=== PATIENT | female | born 1960 | race Caucasian/White ===

== ENCOUNTER 2018-12-13 21:23 | Day surgery (SDC) | payer OTHER ==
[2018-12-13] MEDS ORDERED: Sodium Chloride 0.9% 1,000 ML IV ONE (21:28)
[2018-12-13] MEDS ORDERED: Ketorolac 30 MG/ML SDV IVPUSH ONE (21:28)
[2018-12-13] MEDS ORDERED: Ondansetron 4 MG/2 ML SDV IVPUSH ONE (21:28)
--- NOTE | 2018-12-13 21:52 | EDM.PDOC ---
ED HPI GENERAL MEDICAL PROBLEM - General Stated Complaint: SPOKE TO NURSE Time Seen by Provider: 12/13/18 21:24 - History of Present Illness INITIAL COMMENTS - FREE TEXT/NARRATIVE: HISTORY AND PHYSICAL: History of present illness: Patient 58-year-old white female presents with a acute right-sided abdominal pain she denies trauma states she did lift up her grandchild and felt like something might have pulled she denies fever chills been no vomiting or diarrhea no urinary symptoms. She denies prior abdominal surgery Review of systems: As per history of present illness and below otherwise all systems reviewed and negative. Past medical history: As per history of present illness and as reviewed below otherwise noncontributory. Surgical history: As per history of present illness and as reviewed below otherwise noncontributory. Social history: No reported history of drug or alcohol abuse. Family history: As per history of present illness and as reviewed below otherwise noncontributory. Physical exam: HEENT: Atraumatic, normocephalic, pupils reactive, negative for conjunctival pallor or scleral icterus, mucous membranes moist, throat clear, neck supple, nontender, trachea midline. Lungs: Clear to auscultation, breath sounds equal bilaterally, chest nontender. Heart: S1S2, regular, negative for clicks, rubs, or JVD. Abdomen: Soft, nondistended, tenderness in the right lower quadrant to deep palpation. Negative for masses or hepatosplenomegaly. Negative for costovertebral tenderness. Pelvis: Stable nontender. Genitourinary: Deferred. Rectal: Deferred. Extremities: Atraumatic, negative for cords or calf pain. Neurovascular unremarkable. Neuro: Awake, alert, oriented. Cranial nerves II through XII unremarkable. Cerebellum unremarkable. Motor and sensory unremarkable throughout. Exam nonfocal. Diagnostics: CBC CMP lipase UA chest x-ray CT abdomen and pelvis Therapeutics: Saline 1 L bolus Toradol 30 mg IV Zofran 4 mg IV Impression: #1 right-sided abdominal pain Definitive disposition and diagnosis as appropriate pending reevaluation and review of above. - Related Data Allergies Allergy/AdvReac Type Severity Reaction Status Date / Time No Known Allergies Allergy Verified 12/13/18 21:29 Home Meds: Home Meds . [No Known Home Meds] 12/13/18 [History] ED ROS GENERAL - Review of Systems Review Of Systems: ROS reveals no pertinent complaints other than HPI. ED EXAM, GENERAL - Physical Exam Exam: See Below (Dictation) Course - Vital Signs Last Recorded V/S: Last Vital Signs Temp 35.7 C 12/13/18 21:29 Pulse 81 12/13/18 21:29 Resp 18 12/13/18 21:29 BP 149/71 H 12/13/18 21:29 Pulse Ox 97 12/13/18 21:29 - Orders/Labs/Meds Labs: Laboratory Tests 12/13/18 12/13/18 12/13/18 Range/Units 21:40 21:40 21:40 WBC 15.60 H (4.0-11.0) K/uL RBC 4.97 (4.30-5.90) M/uL Hgb 15.4 (12.0-16.0) g/dL Hct 46.9 H (36.0-46.0) % MCV 94.4 (80.0-98.0) fL MCH 31.0 (27.0-32.0) pg MCHC 32.8 (31.0-37.0) g/dL RDW Std Deviation 46.6 (28.0-62.0) fl RDW Coeff of Cheri 14 (11.0-15.0) % Plt Count 221 (150-400) K/uL MPV 10.60 (7.40-12.00) fL Neut % (Auto) 79.5 (48.0-80.0) % Lymph % (Auto) 13.1 L (16.0-40.0) % [place] % (Auto) 6.4 (0.0-15.0) % Eos % (Auto) 0.8 (0.0-7.0) % Baso % (Auto) 0.2 (0.0-1.5) % Neut # (Auto) 12.4 H (1.4-5.7) K/uL Lymph # (Auto) 2.1 (0.6-2.4) K/uL [place] # (Auto) 1.0 H (0.0-0.8) K/uL Eos # (Auto) 0.1 (0.0-0.7) K/uL Baso # (Auto) 0.0 (0.0-0.1) K/uL Nucleated RBC % 0.0 /100WBC Nucleated RBCs # 0 K/uL INR 0.96 Sodium 141 (136-145) mmol/L Potassium 3.7 (3.5-5.1) mmol/L Chloride 104 (98-107) mmol/L Carbon Dioxide 26.4 (21.0-32.0) mmol/L BUN 18 (7.0-18.0) mg/dL Creatinine 0.9 (0.6-1.0) mg/dL Est Cr Clr Drug Dosing 67.87 mL/min Estimated GFR (MDRD) > 60.0 ml/min Glucose 139 H (74-106) mg/dL Calcium 9.0 (8.5-10.1) mg/dL Total Bilirubin 0.4 (0.2-1.0) mg/dL AST 26 (15-37) IU/L ALT 29 (14-63) IU/L Alkaline Phosphatase 55 (46-116) U/L Total Protein 7.6 (6.4-8.2) g/dL Albumin 3.8 (3.4-5.0) g/dL Globulin 3.8 (2.6-4.0) g/dL Albumin/Globulin Ratio 1.0 (0.9-1.6) Lipase 116 (73-393) U/L Urine Color Urine Appearance Urine pH (5.0-8.0) Ur Specific [place] (1.001-1.035) Urine Protein (NEGATIVE) mg/dL Urine Glucose (UA) (NEGATIVE) mg/dL Urine Ketones (NEGATIVE) mg/dL Urine Occult Blood (NEGATIVE) Urine Nitrite (NEGATIVE) Urine Bilirubin (NEGATIVE) Urine Urobilinogen (<2.0) EU/dL Ur Leukocyte Esterase (NEGATIVE) Urine RBC (0-2/HPF) Urine WBC (0-5/HPF) Ur Epithelial Cells (NONE-FEW) Urine Bacteria (NEGATIVE) 12/13/18 Range/Units 21:45 WBC (4.0-11.0) K/uL RBC (4.30-5.90) M/uL Hgb (12.0-16.0) g/dL Hct (36.0-46.0) % MCV (80.0-98.0) fL MCH (27.0-32.0) pg MCHC (31.0-37.0) g/dL RDW Std Deviation (28.0-62.0) fl RDW Coeff of Cheri (11.0-15.0) % Plt Count (150-400) K/uL MPV (7.40-12.00) fL Neut % (Auto) (48.0-80.0) % Lymph % (Auto) (16.0-40.0) % [place] % (Auto) (0.0-15.0) % Eos % (Auto) (0.0-7.0) % Baso % (Auto) (0.0-1.5) % Neut # (Auto) (1.4-5.7) K/uL Lymph # (Auto) (0.6-2.4) K/uL [place] # (Auto) (0.0-0.8) K/uL Eos # (Auto) (0.0-0.7) K/uL Baso # (Auto) (0.0-0.1) K/uL Nucleated RBC % /100WBC Nucleated RBCs # K/uL INR Sodium (136-145) mmol/L Potassium (3.5-5.1) mmol/L Chloride (98-107) mmol/L Carbon Dioxide (21.0-32.0) mmol/L BUN (7.0-18.0) mg/dL Creatinine (0.6-1.0) mg/dL Est Cr Clr Drug Dosing mL/min Estimated GFR (MDRD) ml/min Glucose (74-106) mg/dL Calcium (8.5-10.1) mg/dL Total Bilirubin (0.2-1.0) mg/dL AST (15-37) IU/L ALT (14-63) IU/L Alkaline Phosphatase (46-116) U/L Total Protein (6.4-8.2) g/dL Albumin (3.4-5.0) g/dL Globulin (2.6-4.0) g/dL Albumin/Globulin Ratio (0.9-1.6) Lipase (73-393) U/L Urine Color YELLOW Urine Appearance CLEAR Urine pH 6.5 (5.0-8.0) Ur Specific [place] 1.020 (1.001-1.035) Urine Protein NEGATIVE (NEGATIVE) mg/dL Urine Glucose (UA) NEGATIVE (NEGATIVE) mg/dL Urine Ketones TRACE H (NEGATIVE) mg/dL Urine Occult Blood TRACE-LYSED H (NEGATIVE) Urine Nitrite NEGATIVE (NEGATIVE) Urine Bilirubin NEGATIVE (NEGATIVE) Urine Urobilinogen 0.2 (<2.0) EU/dL Ur Leukocyte Esterase NEGATIVE (NEGATIVE) Urine RBC 0-2 (0-2/HPF) Urine WBC 0-1 (0-5/HPF) Ur Epithelial Cells RARE (NONE-FEW) Urine Bacteria RARE (NEGATIVE) Meds: Medications Discontinued Medications Generic Name Dose Route Start Last Admin Trade Name Freq PRN Reason Stop Dose Admin Sodium Chloride 1,000 mls @ 999 mls/hr 12/13/18 21:28 12/13/18 21:43 Normal Saline IV 12/13/18 22:28 999 mls/hr STAT ONE Administration Ketorolac Tromethamine 30 mg 12/13/18 21:28 12/13/18 21:44 Toradol IVPUSH 12/13/18 21:29 30 mg ONETIME ONE Administration Ondansetron HCl 4 mg 12/13/18 21:28 12/13/18 21:43 Zofran IVPUSH 12/13/18 21:29 4 mg ONETIME ONE Administration Departure - Departure Time of Disposition: 23:00 Disposition: Still A Patient 30 Condition: Good Clinical Impression: Appendicitis - Discharge Information
[2018-12-13 22:16] LABS: BLOOD UREA NITROGEN,BUN 18 mg/dL (7.0-18.0); CARBON DIOXIDE,CO2 26.4 mmol/L (21.0-32.0); CHLORIDE,CL 104 mmol/L (98-107); GLUCOSE RANDOM 139 mg/dL (74-106); LIPASE 116 U/L (73-393); POTASSIUM,K 3.7 mmol/L (3.5-5.1); SODIUM,NA 141 mmol/L (136-145)
--- NOTE | 2018-12-13 22:22 | CT ---
INDICATION: Right lower quadrant pain TECHNIQUE: CT abdomen and pelvis without contrast. COMPARISON: None FINDINGS: Lower chest: Unremarkable. Liver: Hepatic steatosis. Spleen: Unremarkable. Pancreas: Unremarkable. Gallbladder and bile ducts: Unremarkable. Kidneys: Unremarkable. No kidney or ureteral stones and no hydronephrosis. Adrenal glands: Unremarkable. GI tract: Unremarkable. Dilated and thickened appendix with adjacent periappendiceal fat stranding. Findings consistent with acute appendicitis. Vascular structures: Unremarkable. Lymph nodes: Unremarkable. Miscellaneous: Small fat containing umbilical hernia. No free air or significant free fluid. Pelvic Organs: Unremarkable. Bones: Unremarkable for age. IMPRESSION: Dilated and thickened appendix with adjacent periappendiceal fat stranding. Findings consistent with acute appendicitis. Hepatic steatosis. Dictated by Carlos Dorsey MD @ 12/13/2018 10:21:36 PM Please note that all CT scans at this facility use dose modulation, iterative reconstruction, and/or weight-based dosing when appropriate to reduce radiation dose to as low as reasonably achievable. Dictated by: Carlos Dorsey MD @ 12/13/2018 22:21:44 (Electronically Signed)
--- NOTE | 2018-12-13 22:48 | CR ---
INDICATION: abd pain. r/o pneumonia. hx of walking pneumonia TECHNIQUE: Chest 1 view. COMPARISON: None. FINDINGS: Cardiovascular and mediastinum: Heart size and vasculature are normal in caliber and appearance. Mediastinum is within normal limits. Lungs and pleural space: Lungs are clear. No sign of infiltrate or mass. No sign of pleural effusion. No pneumothorax. Bones and soft tissues: No significant findings. IMPRESSION: Unremarkable chest. Dictated by: Carlos Dorsey MD @ 12/13/2018 22:48:27 (Electronically Signed)
[2018-12-13] MEDS ORDERED: cefOXitin 2 GM in Sodium Chloride 0.9% 100 ML IV ONE (23:22)
--- NOTE | 2018-12-13 23:23 | PCM.PREANE ---
Preanesthetic Assessment - Anesthesia/Transfusion/Family Hx Anesthesia History: No Prior Anesthesia Family History of Anesthesia Reaction: No Transfusion History: No Prior Transfusion(s) - Review of Systems General: No Symptoms Pulmonary: No Symptoms Cardiovascular: No Symptoms Gastrointestinal: No Symptoms Neurological: No Symptoms Other: Reports: None - Physical Assessment NPO Status Date: 12/13/18 NPO Status Time: 17:00 Vital Signs: Last Vital Signs Temp 96.2 F 12/13/18 21:29 Pulse 81 12/13/18 21:29 Resp 18 12/13/18 21:29 BP 149/71 H 12/13/18 21:29 Pulse Ox 97 12/13/18 21:29 Height: 5 ft 7 in Weight: 82.1 kg ASA Class: 2E Mental Status: Alert & Oriented x3 Airway Class: Mallampati = 2 Dentition: Reports: Normal Dentition Thyro-Mental Finger Breadths: 3 Mouth Opening Finger Breadths: 3 ROM/Head Extension: Full Lungs: Clear to Auscultation, Normal Respiratory Effort Cardiovascular: Regular Rate, Regular Rhythm - Lab Values: Laboratory Last Values WBC 15.60 K/uL (4.0-11.0) H 12/13/18 21:40 RBC 4.97 M/uL (4.30-5.90) 12/13/18 21:40 Hgb 15.4 g/dL (12.0-16.0) 12/13/18 21:40 Hct 46.9 % (36.0-46.0) H 12/13/18 21:40 MCV 94.4 fL (80.0-98.0) 12/13/18 21:40 MCH 31.0 pg (27.0-32.0) 12/13/18 21:40 MCHC 32.8 g/dL (31.0-37.0) 12/13/18 21:40 RDW Std Deviation 46.6 fl (28.0-62.0) 12/13/18 21:40 RDW Coeff of Cheri 14 % (11.0-15.0) 12/13/18 21:40 Plt Count 221 K/uL (150-400) 12/13/18 21:40 MPV 10.60 fL (7.40-12.00) 12/13/18 21:40 Neut % (Auto) 79.5 % (48.0-80.0) 12/13/18 21:40 Lymph % (Auto) 13.1 % (16.0-40.0) L 12/13/18 21:40 [place] % (Auto) 6.4 % (0.0-15.0) 12/13/18 21:40 Eos % (Auto) 0.8 % (0.0-7.0) 12/13/18 21:40 Baso % (Auto) 0.2 % (0.0-1.5) 12/13/18 21:40 Neut # (Auto) 12.4 K/uL (1.4-5.7) H 12/13/18 21:40 Lymph # (Auto) 2.1 K/uL (0.6-2.4) 12/13/18 21:40 [place] # (Auto) 1.0 K/uL (0.0-0.8) H 12/13/18 21:40 Eos # (Auto) 0.1 K/uL (0.0-0.7) 12/13/18 21:40 Baso # (Auto) 0.0 K/uL (0.0-0.1) 12/13/18 21:40 Nucleated RBC % 0.0 /100WBC 12/13/18 21:40 Nucleated RBCs # 0 K/uL 12/13/18 21:40 INR 0.96 12/13/18 21:40 Sodium 141 mmol/L (136-145) 12/13/18 21:40 Potassium 3.7 mmol/L (3.5-5.1) 12/13/18 21:40 Chloride 104 mmol/L (98-107) 12/13/18 21:40 Carbon Dioxide 26.4 mmol/L (21.0-32.0) 12/13/18 21:40 BUN 18 mg/dL (7.0-18.0) 12/13/18 21:40 Creatinine 0.9 mg/dL (0.6-1.0) 12/13/18 21:40 Est Cr Clr Drug Dosing 67.87 mL/min 12/13/18 21:40 Estimated GFR (MDRD) > 60.0 ml/min 12/13/18 21:40 Glucose 139 mg/dL (74-106) H 12/13/18 21:40 Calcium 9.0 mg/dL (8.5-10.1) 12/13/18 21:40 Total Bilirubin 0.4 mg/dL (0.2-1.0) 12/13/18 21:40 AST 26 IU/L (15-37) 12/13/18 21:40 ALT 29 IU/L (14-63) 12/13/18 21:40 Alkaline Phosphatase 55 U/L (46-116) 12/13/18 21:40 Total Protein 7.6 g/dL (6.4-8.2) 12/13/18 21:40 Albumin 3.8 g/dL (3.4-5.0) 12/13/18 21:40 Globulin 3.8 g/dL (2.6-4.0) 12/13/18 21:40 Albumin/Globulin Ratio 1.0 (0.9-1.6) 12/13/18 21:40 Lipase 116 U/L (73-393) 12/13/18 21:40 Urine Color YELLOW 12/13/18 21:45 Urine Appearance CLEAR 12/13/18 21:45 Urine pH 6.5 (5.0-8.0) 12/13/18 21:45 Ur Specific [place] 1.020 (1.001-1.035) 12/13/18 21:45 Urine Protein NEGATIVE mg/dL (NEGATIVE) 12/13/18 21:45 Urine Glucose (UA) NEGATIVE mg/dL (NEGATIVE) 12/13/18 21:45 Urine Ketones TRACE mg/dL (NEGATIVE) H 12/13/18 21:45 Urine Occult Blood TRACE-LYSED (NEGATIVE) H 12/13/18 21:45 Urine Nitrite NEGATIVE (NEGATIVE) 12/13/18 21:45 Urine Bilirubin NEGATIVE (NEGATIVE) 12/13/18 21:45 Urine Urobilinogen 0.2 EU/dL (<2.0) 12/13/18 21:45 Ur Leukocyte Esterase NEGATIVE (NEGATIVE) 12/13/18 21:45 Urine RBC 0-2 (0-2/HPF) 12/13/18 21:45 Urine WBC 0-1 (0-5/HPF) 12/13/18 21:45 Ur Epithelial Cells RARE (NONE-FEW) 12/13/18 21:45 Urine Bacteria RARE (NEGATIVE) 12/13/18 21:45 - Allergies Allergies/Adverse Reactions: Allergies Allergy/AdvReac Type Severity Reaction Status Date / Time No Known Allergies Allergy Verified 12/13/18 21:29 - Acknowledgements Anesthesia Type Planned: General Anesthesia Pt an Appropriate Candidate for the Planned Anesthesia: Yes Alternatives and Risks of Anesthesia Discussed w Pt/Guardian: Yes Pt/Guardian Understands and Agrees with Anesthesia Plan: Yes PreAnesthesia Questionnaire - Past Health History Medical/Surgical History: Denies Medical/Surgical History HEENT History: Reports: None Cardiovascular History: Reports: None Respiratory History: Reports: None Gastrointestinal History: Reports: Other (See Below) (Appendicitis) Genitourinary History: Reports: None MARKET DEVELOPMENT SPECIALIST History: Reports: None Musculoskeletal History: Reports: None Neurological History: Reports: None Psychiatric History: Reports: None Endocrine/Metabolic History: Reports: None Hematologic History: Reports: None Immunologic History: Reports: None Oncologic (Cancer) History: Reports: None Dermatologic History: Reports: None - Infectious Disease History Infectious Disease History: Reports: Chicken Pox - Past Surgical History Musculoskeletal Surgical History: Reports: Other (See Below) (Rt wrist surgery) - SUBSTANCE USE Smoking Status *Q: Current Every Day Smoker Tobacco Use Within Last Twelve Months: Cigarettes Recreational Drug Use History: No - HOME MEDS Home Medications: Home Meds . [No Known Home Meds] 12/13/18 [History] - CURRENT (IN HOUSE) MEDS Current Meds: Current Medications Discontinued Medications Sodium Chloride (Normal Saline) 1,000 mls @ 999 mls/hr IV STAT ONE Stop: 12/13/18 22:28 Last Admin: 12/13/18 21:43 Dose: 999 mls/hr Ketorolac Tromethamine (Toradol) 30 mg IVPUSH ONETIME ONE Stop: 12/13/18 21:29 Last Admin: 12/13/18 21:44 Dose: 30 mg Ondansetron HCl (Zofran) 4 mg IVPUSH ONETIME ONE Stop: 12/13/18 21:29 Last Admin: 12/13/18 21:43 Dose: 4 mg
[2018-12-13] MEDS ORDERED: Lidocaine 2% 5 ML SDV ONE (23:32)
[2018-12-13] MEDS ORDERED: Midazolam 1 MG/ML 2 ML SDV ONE (23:32)
[2018-12-13] MEDS ORDERED: Propofol 200 MG/20 ML SDV ONE (23:32)
[2018-12-13] MEDS ORDERED: Ondansetron 4 MG/2 ML SDV ONE (23:32)
[2018-12-13] MEDS ORDERED: Rocuronium 100 MG/10 ML Syringe ONE (23:33)
[2018-12-13] MEDS ORDERED: fentaNYL 250 MCG/5 ML SDV ONE (23:33)
[2018-12-13] MEDS ORDERED: fentaNYL 100 MCG/2 ML SDV IVPUSH PRN (23:43)
[2018-12-13] MEDS ORDERED: Atropine 0.1 MG/ML 10 ML Syringe IVPUSH PRN ×2 (23:43)
[2018-12-13] MEDS ORDERED: Naloxone 0.4 MG/ML Syringe IVPUSH PRN (23:43)
[2018-12-13] MEDS ORDERED: 50% Dextrose in Water 50 ML Syringe IVPUSH PRN (23:43)
[2018-12-13] MEDS ORDERED: Albuterol 0.083% 2.5 MG/3 ML Neb Soln NEB PRN (23:43)
[2018-12-13] MEDS ORDERED: EPINEPHrine 1:10,000 1 MG/10 ML Syringe IVPUSH PRN (23:43)
--- NOTE | 2018-12-13 23:43 | PCM.SN ---
- Free Text/Narrative Note: pt seen, chart reviewed; h/p and consult dictated, see [id number]; acute appendicitis, cw w h/p and imaging studies; proceed w appendectomy, lap vs open , rb dw pt re bleeding/infection/damage to nearby organs; pt concurs and proceed ; ivf/iv abx.
[2018-12-13] MEDS ORDERED: Scopolamine 1.5 MG Transdermal Patch TRDERM PRN (23:44)
[2018-12-13] MEDS ORDERED: Lactated Ringers 1,000 ML IV SCH (23:45)
[2018-12-13] MEDS ORDERED: Bupivacaine 25%/EPINEPHrine/PF 30 ML ONE (23:51)
--- NOTE | 2018-12-14 00:22 | CONS ---
DATE OF CONSULTATION: 12/13/2018 DATE OF : 1960 PRIMARY CARE PHYSICIAN: None PCP REFERRING PHYSICIAN: Juan Dunn M.D. REASON FOR CONSULTATION: Acute appendicitis. HISTORY OF PRESENT ILLNESS: The patient is a 58-year-old obese lady, complaining of right lower quadrant pain for about 4 to 5 hours. The patient remarked the pain is 10/10. Workup in the emergency room noted for acute appendicitis. Surgery was then consulted. The patient denied prior episode. Denied fever, chills, or diarrhea. Pain is 10/10. Currently, getting some pain medications, it is getting better. Last meal was about 5 hours ago. The patient had a full meal. ALLERGIES: Please refer to nursing for details. MEDICATION: Please refer to nursing for details. FAMILY HISTORY: Noncontributory. PAST MEDICAL HISTORY: Significant for no diabetes, AK, CVA, or hypertension. PAST SURGICAL HISTORY: Normal vaginal delivery x4 and right wrist surgery. SOCIAL HISTORY: The patient is a smoker and drinks every day. PHYSICAL EXAMINATION: GENERAL: A very pleasant lady, smiled to the doctor, in no acute distress. HEENT: Normocephalic and atraumatic. Sclerae anicteric. LUNGS: Clear to auscultation. HEART: Regular rate and rhythm. ABDOMEN: Soft, nondistended. No pulsating tender midline abdominal structure. No surgical scar. Exquisite tenderness on the McBurney point, almost jumped off the table. However, there is no Rovsing sign and there is no rebound tenderness. There is umbilical hernia about 10 mm, nontender. LABORATORY DATA AND X-RAYS: White count was 15.6, H and H 15 and 47, platelets 220. INR was 0.96. Potassium was 3.7, BUN 18, creatinine 0.9. UA, no signs or symptoms of urinary tract infection. CAT scan report: Dilated and thickened appendix with adjacent periappendiceal fat stranding consistent with acute appendicitis. IMPRESSION: Acute appendicitis. PLAN: The patient would benefit from timely surgical intervention. We will proceed with laparoscopic, possible open appendectomy. Risks and benefits discussed with the patient including, but not limited to bleeding, infection, and damage to nearby organ, and the patient concurred to proceed as planned. We will give IV antibiotic 2 g IV Mefoxin and lactated Ringer 150, and proceed with surgery. As always, thank you for the kind referral. ELVA / TRAVIS /[id number]
[2018-12-14] MEDS ORDERED: Acetaminophen/oxyCODONE 325-5 MG Tab PO PRN (01:40)
[2018-12-14] MEDS ORDERED: Morphine 4 MG/ML Syringe IVPUSH PRN (01:40)
--- NOTE | 2018-12-14 01:40 | PCM.OPNOTE ---
- General Post-Op/Procedure Note Date of Surgery/Procedure: 12/14/18 Operative Procedure(s): lap appendectomy Findings: appendix was dilated, full of exudate, indulation, cw appendicitis suppurativa; gross perf not observed; [id number] Pre Op Diagnosis: acute appendicitis Post-Op Diagnosis: Same Anesthesia Technique: General ET Tube Primary Surgeon: Lisandro Hawkins Pathology: sent Complications: None Condition: Stable
[2018-12-14] MEDS ORDERED: Ondansetron 4 MG/2 ML SDV IVPUSH PRN (01:41)
[2018-12-14] MEDS ORDERED: Lactated Ringers 1,000 ML IV SCH (01:45)
[2018-12-14] MEDS ORDERED: Albuterol 0.083% 2.5 MG/3 ML Neb Soln NEB PRN (01:55)
--- NOTE | 2018-12-14 02:07 | OR ---
SURGEON: Lisandro Hawkins MD DATE OF PROCEDURE: 12/14/2018 PREOPERATIVE DIAGNOSIS: Acute appendicitis. POSTOPERATIVE DIAGNOSIS: Acute appendicitis. PROCEDURE PERFORMED: Appendectomy, laparoscopic. COMPLICATIONS: None. FINDINGS: Appendix is swollen and full of exudate, and hyperemic, consistent with appendicitis suppurative. Gross perforation is not observed. PROCEDURE IN DETAIL: The patient was taken to the operating room and placed in the supine position. Following induction of general endotracheal anesthesia, the patient's abdomen was prepped and draped in the sterile fashion. A time-out has been called. The patient was identified. The procedure was identified. The antibiotics were identified. The procedure then proceeded. The abdomen was prepped and draped in a standard fashion. After assessment of appropriate landmarks, a 12 millimeter trocar was inserted supraumbilically using Optiview and pneumoperitoneum was then achieved. This was followed with placement of 5 millimeter port in the right upper quadrant and another 5 millimeter port infraumbilically. The camera was inserted supraumbilical site and two laparoscopic [place] retractors were then inserted through the other two sites. Following the cecum, the appendix was located. The appendix was then lifted up, and using a GI stapler the appendix was amputated at the base. And using the GI stapler, the mesoappendix was then amputated. The appendix was retrieved by an endoscopic bag and sent for pathologist. This was then followed by re-insertion of the camera to examine the staple line, and hemostasis. The trocars were then removed. The umbilical site was closed with 2-0 Vicryl deep stitch and 4 -0 Vicryl and dermabond; the other 2 5 mm port sites were closed with 4-0 Vicryl and dermabond. Surgicel was inserted for hemostasis after closing with a 2-0 Vicryl on the umbilical port. The skin was approximated by use of skin riddhi. So did the other 2 port sites using skin riddhi, followed with appropriate dressing. The patient was then awakened, extubated, and transferred to the recovery room in hemodynamically stable condition. The patient tolerated the procedure well. There were no intraoperative complications. Prior to closing, sponge count and instrument count was correct. Dr. Hawkins was present throughout the whole procedure. As always, thank you for the kind referral. ELVA / TRAVIS /[id number]
--- NOTE | 2018-12-14 02:46 | PCM.POSTAN ---
POST ANESTHESIA ASSESSMENT - MENTAL STATUS Mental Status: Alert, Oriented - VITAL SIGNS Vital Signs: Last Vital Signs Temp 36.4 C 12/14/18 01:38 Pulse 87 12/14/18 02:20 Resp 16 12/14/18 02:20 BP 145/85 H 12/14/18 02:20 Pulse Ox 94 L 12/14/18 02:20 - RESPIRATORY Respiratory Status: Respiratory Rate WNL, Airway Patent, O2 Saturation Stable - CARDIOVASCULAR CV Status: Pulse Rate WNL, Blood Pressure Stable - GASTROINTESTINAL GI Status: No Symptoms - PAIN Pain Score: 2 - POST OP HYDRATION Hydration Status: Adequate & Stable
--- NOTE | 2018-12-14 11:33 | PCM48HPAN ---
Post Anesthesia Note - EVALUATION WITHIN 48HRS OF ANESTHETIC Vital Signs in Normal Range: Yes Patient Participated in Evaluation: Yes Respiratory Function Stable: Yes Airway Patent: Yes Cardiovascular Function Stable: Yes Hydration Status Stable: Yes Pain Control Satisfactory: Yes Nausea and Vomiting Control Satisfactory: Yes Mental Status Recovered: Yes Vital Signs: Last Vital Signs Temp 36.4 C 12/14/18 07:52 Pulse 84 12/14/18 07:52 Resp 16 12/14/18 07:52 BP 145/76 H 12/14/18 07:52 Pulse Ox 91 L 12/14/18 07:52
== END 2018-12-14 11:50 | disposition home or self-care (01) ==
LOC: MW.ED 21:23 → MW.SDS 23:25 → MW.MS 23:34 → MW.SDS 12-14 11:50
PROVIDERS: ATTEND Surgery
DX: K35.80 Unspecified acute appendicitis (principal); F17.210 Nicotine dependence, cigarettes, uncomplicated
CPT/HCPCS: 44970; 71045; 74176; 80053; 81001; 81025; 83690; 85025; 85610; 94640; 96361; 96365; 96375; 99285; A9270; J0330; J0694; J1885; J2001; J2250; J2405; J2704; J3010; J7030; J7040; J7120; 88304; 99284